=== PATIENT | male | born 1995 | race Caucasian/White ===

== ENCOUNTER 2020-04-04 18:34 | Emergency (ER) | payer OTHER, SELFPAY ==
[2020-04-04] VITALS (10 sets, daily range): BP systolic 128–141; BP diastolic 68–72; PULSE 75–93; RESP 11–20; TEMP 36.7–36.8; O2SAT 96–99
--- NOTE | 2020-04-04 | DI.CT_ITS ---
EXAM: CT CHEST/ABD/PEL W TECHNIQUE: CT examination of the chest, abdomen, and pelvis was performed with bolus infusion of 100 cc of Omnipaque 350. COMPARISON: CT CT THORACIC LUMBAR SPINE REC from 04/04/2020 FINDINGS: There is no evidence of a thoracic vascular injury. The lungs are clear. No pneumothorax or pleural effusion. No mediastinal hematoma. No adenopathy in the chest. Tracheobronchial tree appears intact. The liver, spleen, and pancreas appear normal. Gallbladder and bile ducts are normal. Adrenals and kidneys are unremarkable. No evidence of urinary tract injury or obstruction. No abdominal or pelvic vascular injury seen. No abdominal or pelvic adenopathy. No significant abdomi nal wall hernia or hematoma. No evidence of bowel injury. No fracture identified in the region surveyed. Additional reconstructions of thoracic spine and lumbar spine were performed utilizing raw data. The re is no evidence of acute thoracic spine or lumbar spine injury. IMPRESSION: No evidence of acute injury of the chest, abdomen, or pelvis. No evidence of acute lumbar or thoracic spine injury. RADIATION DOSE DELIVERED: Total DLP Total DLP Total DLP Total DLP Total DLP DATA REPOSITORY: All CT scans at this facility are submitted to the National Radiology Data Registry (NRDR) Dose Index Registry (DIR) with the [employer] ([employer]). RADIATION OPTIMIZATION: All CT scans at this facility use at least one of these dose optimization te chniques: automated exposure control; mA and/or kV adjustment per patient size (includes targeted exa ms where dose is matched to clinical indication); or iterative reconstruction.
--- NOTE | 2020-04-04 18:30 | DI.CT_ITS ---
EXAM: CT HEAD NECK WO COMPARISON: No exams were available for comparison FINDINGS: CT examination of the cervical spine was performed without contrast administration. There is no evide nce of acute cervical spine fracture or dislocation. Tracheolaryngeal structures appear intact. No ce rvical mass or adenopathy. Intervertebral disc spaces are well maintained. Noncontrast cranial CT was performed. Ventricular system is normal in appearance. No evidence of acut e intracranial hemorrhage, mass effect, or midline shift. No calvarial fracture. The orbital and temp oral bone structures appear intact. IMPRESSION: No evidence of acute cervical spine injury. No evidence of acute intracranial injury. RADIATION DOSE DELIVERED: 1,412.58mGy.cm Total DLP 1,412.58mGy.cm Total DLP DATA REPOSITORY: All CT scans at this facility are submitted to the National Radiology Data Registry (NRDR) Dose Index Registry (DIR) with the [employer] ([employer]). RADIATION OPTIMIZATION: All CT scans at this facility use at least one of these dose optimization te chniques: automated exposure control; mA and/or kV adjustment per patient size (includes targeted exa ms where dose is matched to clinical indication); or iterative reconstruction.
[2020-04-04] MEDS: Normal Saline 1,000 ML 1000 ML IV (18:55)
[2020-04-04 19:03] LABS: Abs Immature Grans 0.05 10^3/uL (0.0-0.06); Absolute Basophil Count 0.04 10^3/uL (0.0-0.2); Absolute Eosinophil Count 0.04 10^3/uL (0.0-0.7); Absolute Lymphocyte Count 2.44 10^3/uL (1.2-3.4); Absolute Monocyte Count 0.44 10^3/uL (0.1-0.8); Absolute Neutrophil Count 4.62 10^3/uL (1.2-6.7); Basophils % 0.5; Eosinophils % 0.5; HGB 16.4 g/dL (13.5-17.5); Immature Grans % 0.7; MCH 30.9 pg (27.0-33.0); MCHC 35.7 % (32.0-36.0); MCV 86.8 fL (80-95); Monocytes % 5.8; Neutrophils % 60.5; Nucleated RBC 0 %; Platelet Count 293 10^3/uL (130-400); RDW 11.7 % (11.8-14.1); RDW-SD 36.9 fL; WBC 7.63 10^3/uL (4.4-10.8)
[2020-04-04 19:16] LABS: PTT Activated 24.3 sec (21.0-31.4); Prothrombin Time 12.5 sec (9.3-11.0)
[2020-04-04 19:17] LABS: INR 1.2 (0.9-1.1)
[2020-04-04 19:21] LABS: ALT 72 U/L (16-63); AST 42 U/L (15-37); Alkaline Phosphatase 93 U/L (46-116); Anion Gap 9.9 mmol/L (3-11); BUN 8 mg/dL (7-18); Bilirubin, Total 1.1 mg/dL (0.2-1.0); CO2 28.1 mmol/L (21.0-32.0); CREATININE 1.13 mg/dL (0.70-1.30); Calcium 9.2 mg/dL (8.5-10.1); Chloride 104 mmol/L (98-107); ETHANOL BLOOD 192.8 mg/dL (<3); Glucose 96 mg/dL (74-106); Lipase 120 U/L (73-393); Magnesium 2.1 mg/dL (1.8-2.4); Potassium 3.4 mmol/L (3.5-5.1); Sodium 142 mmol/L (136-145); Total Protein 9.1 g/dL (6.4-8.2); Troponin I < 0.05 ng/mL (<0.06)
[2020-04-04 19:24] LABS: Bilirubin Negative (Negative); Blood Negative (Negative); Clarity Clear (Clear); Glucose Negative (Negative); Ketones Negative (Negative); Leukocyte Esterase Negative (Negative); Nitrite Negative (Negative); Urobilinogen 0.2 EU/dL (Up TO 0.2); pH 6.5 (5-8)
[2020-04-04 19:35] LABS: *AMPHETAMINES SCREEN URINE Negative (Negative); *BARBITURATES SCREEN URINE Negative (Negative); *BENZODIAZEPINES SCREEN URINE Negative (Negative); Cannabinoids THC Negative (Negative); Cocaine Screen,Urine Negative (Negative); METHADONE URINE SCREEN Negative (Negative); OPIATES URINE SCREEN Negative (Negative)
[2020-04-04 19:36] LABS: Tricyclic Antidepressants Negative (Negative)
--- NOTE | 2020-04-04 20:07 | DI.VRAD_ITS ---
PROCEDURE INFORMATION: Exam: CT Head Without Contrast Exam date and time: 04/04/2020 7:31 PM Age: 25 years old Clinical indication: Injury or trauma; Blunt trauma (contusions or hematomas); Consciousness not specified; Patient HX: Trauma, fall 20 feet TECHNIQUE: Imaging protocol: Computed tomography of the head without contrast. COMPARISON: No relevant prior studies available. FINDINGS: No evidence of hemorrhage. No mass effect. No acute intracranial abnormality. IMPRESSION: No evidence of acute intracranial process. PROCEDURE INFORMATION: Exam: CT Cervical Spine Without Contrast Exam date and time: 04/04/2020 7:31 PM Age: 25 years old Clinical indication: Injury or trauma; Blunt trauma (contusions or hematomas); Consciousness not specified; Patient HX: Trauma, fall 20 feet TECHNIQUE: Imaging protocol: Computed tomography images of the cervical spine without contrast. COMPARISON: No relevant prior studies available. FINDINGS: The bony structures are in anatomic alignment. No fracture is present. No radiopaque foreign body is identified. Parasinous soft tissues unremarkable. Lung apices within normal limits. IMPRESSION: No evidence of acute bony abnormality. Dictated and Authenticated by: Abram Kyle MD. Ordering:NOY Ravi MD
--- NOTE | 2020-04-04 20:25 | DI.VRAD_ITS ---
PROCEDURE INFORMATION: Exam: CT Chest With Contrast Exam date and time: 04/04/2020 7:37 PM Age: 25 years old Clinical indication: Injury or trauma; Patient HX: Trauma, fall 20 feet TECHNIQUE: Imaging protocol: Computed tomography of the chest with intravenous contrast. COMPARISON: No relevant prior studies available. FINDINGS: Lungs: Unremarkable. No consolidation. No masses. Pleural space: Unremarkable. No pneumothorax. No pleural effusion. Heart: Unremarkable. No cardiomegaly. No pericardial effusion. Aorta: Unremarkable. No aortic aneurysm. Lymph nodes: Unremarkable. No enlarged lymph nodes. Bones/joints: Unremarkable. No acute fracture. Soft tissues: Unremarkable. IMPRESSION: No acute findings. PROCEDURE INFORMATION: Exam: CT Abdomen And Pelvis With Contrast Exam date and time: 04/04/2020 7:37 PM Age: 25 years old Clinical indication: Injury or trauma; Patient HX: Trauma, fall 20 feet TECHNIQUE: Imaging protocol: Computed tomography of the abdomen and pelvis with intravenous contrast. COMPARISON: No relevant prior studies available. FINDINGS: Liver: Normal. No mass. Gallbladder and bile ducts: Normal. No calcified stones. No ductal dilation. Pancreas: Normal. No ductal dilation. Spleen: Normal. No splenomegaly. Adrenals: Normal. No mass. Kidneys and ureters: No hydronephrosis. Bilateral extrarenal pelves are noted with mild left pelvicaliectasis. Stomach and bowel: Unremarkable. No obstruction. No mucosal thickening. Appendix: No evidence of appendicitis. Intraperitoneal space: Unremarkable. No free air. No significant fluid collection. Vasculature: Unremarkable. No abdominal aortic aneurysm. Lymph nodes: Unremarkable. No enlarged lymph nodes. Urinary bladder: Unremarkable as visualized. Reproductive: Unremarkable as visualized. Bones/joints: Unremarkable. No acute fracture. Soft tissues: Unremarkable. IMPRESSION: 1. No definite acute injury in the abdomen and pelvis. 2. Mild left pelvicaliectasis, which is nonspecific but may be within normal limits for this patient. Dictated and Authenticated by: Radha Mccall MD. Ordering:NOY Ravi MD
--- NOTE | 2020-04-04 20:32 | DI.VRAD_ITS ---
PROCEDURE INFORMATION: Exam: CT Thoracic Spine Without Contrast Exam date and time: 04/04/2020 7:37 PM Age: 25 years old Clinical indication: Screening exam; Trauma, 20 foot fall; Patient HX: Trauma, fall 20 feet TECHNIQUE: Imaging protocol: Computed tomography images of the thoracic spine without contrast. COMPARISON: No relevant prior studies available. FINDINGS: Vertebrae: No acute fracture. Normal alignment. Discs/Spinal canal/Neural foramina: No significant disc protrusion. No severe spinal canal stenosis. No significant neural foraminal narrowing. Soft tissues: Unremarkable. IMPRESSION: Unremarkable CT thoracic Spine. PROCEDURE INFORMATION: Exam: CT Lumbar Spine Without Contrast Exam date and time: 04/04/2020 7:37 PM Age: 25 years old Clinical indication: Screening exam; Trauma, 20 foot fall; Patient HX: Trauma, fall 20 feet TECHNIQUE: Imaging protocol: Computed tomography images of the lumbar spine without contrast. COMPARISON: No relevant prior studies available. FINDINGS: Vertebrae: No acute fracture. Normal alignment. Discs/Spinal canal/Neural foramina: No significant spinal canal stenosis. There is mild bilateral narrowing at L4-L5 secondary to a mild broad-based disc bulge. Soft tissues: Unremarkable. IMPRESSION: 1. No acute fracture. 2. Mild bilateral neural foraminal narrowing at L4-L5 secondary to mild broad-based disc bulge. Dictated and Authenticated by: Radha Mccall MD. Ordering:NOY Ravi MD
--- NOTE | 2020-04-04 21:14 | ED.GENADUL_ITS ---
Discharge Plan Disposition Patient Disposition: HOME Condition: Stable Discharge Details Clinical Impression: Trauma ED Provider: Trav Millard Discharge Instructions Additional Instructions: At this time you remain asymptomatic. Laboratory values and CT imaging do not reveal any obvious emergent process. Please watch for new or worsening symptoms and return to the ER for any concerns. Please follow-up with your primary care provider when you return home to [place]. Medical Decision Making This is a 25-year-old gentleman who admits to approximately 5 alcoholic drinks this evening, presents to the ER via EMS after falling approximately 20 feet off of a balcony. He initially reported anterior chest wall pain upon arrival has no complaints. He presents in a c-collar. Will obtain to IV access, give 1 L IV saline, obtain CT imaging of head, neck, chest, abdomen, pelvis, spinal recons, and laboratory values. Upon evaluation patient appears well, nontoxic, no obvious deformity. He is awake, alert, and has no complaints at this time. Laboratory values reveal a white blood cell count of 7.63 hemoglobin 16.4 hematocrit 46.0 platelet count 293. INR 1.2. Sodium 142 potassium 3.2 crea tinine 1.13 with a GFR greater than 60. Total bili 1.1 AST 42 ALT 72, alk phosphatase 93. Troponin less than 0.05. Urinalysis negative, tox screen negative, alcohol level 192. Blood type O+. CT imaging of head read by virtual radiology as no evidence of acute intracranial process. C-spine, no evidence of acute bony abnormality chest no acute findings. Abdomen and pelvis no definitive acute injury the abdomen and pelvis. Mild left pelvicaliectasis, which is nonspecific but may be within normal limits for this patient. CT thoracic spine without contrast unremarkable CT thoracic spine. No acute fracture of the lumbar spine. Mild bilateral neural foraminal narrowing at L4-L5 secondary to mild broad-based disc bulge. C-collar removed Discussed case with Dr. Rosales. Patient will be observed in the ER until 11 PM at which time his alcohol level will have gone below 100. Will reevaluate the patient and if he remains asymptomatic and neurologically intact patient will be cleared and discharged. I was able to speak with Peter, patient's friend to make him aware of what was going on. Patient was observed in the ER until 11 PM. At that time he was reassessed. He remains asymptomatic. He remains neurologically intact. Neck nontender. He is awake, alert, ambulates steadily, and able to protect his airway without difficulty. He appears clinically sober. Patient has no additional questions or concerns and is comfortable discharge at this time. HPI General Mode of arrival: EMS . Date/Time Provider Initiated Documentation: 04/04/20 18:44 . Limitations to Documentation: no limitations . Information obtained by: patient and EMS . HPI Narrative: This is a 25-year-old gentleman, no significant past medical history, presenting to the ER for evaluat ion via EMS. He reports that he drove up here today from [facility], had approximately 5 alcoholic drinks, and then fell from a deck or balcony approximately 20 feet onto a grassy slope. He initially read the EMS mild anterior chest wall but upon arrival reports that pain has resolved completely. He denies striking his head, LOC, headache, visual changes, neck pain, back pain, shortness of breath abdominal pain, nausea, vomiting, bowel or bladder incontinence, numbness, tingling, weakness. He reports that his tetanus status is up-to-date. He reports that he came up here for the day because his girlfriend recently broke up with him and he wanted to get away and has some phone. He denies any depression, suicidal or homicidal ideations. He reports that he is here with friends and has somewhere safe to go if discharge. He denies drugs or smoking cigarettes Related Data Allergies Allergy/AdvReac Type Severity Reaction Status Date / Time amoxicillin Allergy Unverified 04/04/20 18:46 gluten AdvReac Unverified 04/04/20 18:47 General Stated Complaint: Trauma LUCILLE: 2 Review of Systems Constitutional Constitutional: Denies fever(s), Denies headache(s) and Denies weakness Eyes Eyes: Denies change in vision ENT Ears, Nose, Mouth, and Throat: Denies facial pain and Denies headache(s) Cardiovascular Cardiovascular: Denies chest pain and Denies dyspnea Respiratory Respiratory: Denies cough and Denies dyspnea Gastrointestinal Gastrointestinal: Denies abdominal pain, Denies fecal incontinence, Denies nausea and Denies vomiting Genitourinary Genitourinary: Denies hematuria and Denies urinary incontinence Musculoskeletal Musculoskeletal: Denies back pain, Denies numbness and Denies tingling Integumentary/Breasts Skin/Breast: Denies rash Neurologic Neurologic: Denies headache(s), Denies numbness, Denies tingling and Denies weakness Psychiatric Psychiatric: Denies homicidal ideation and Denies suicidal ideation Exam Const General: cooperative, healthy appearing, comfortable and no acute distress Orientation: alert, awake and oriented x3 [facility] Head: normal to inspection, no palpable skull fracture, normocephalic and atraumatic Ears: hearing grossly normal bilaterally, external ears normal, TM's normal bilaterally and EAC's normal General nose exam: external nose normal Face and sinus: normal facial exam Mouth: oral mucosae normal and moist mucous membranes Teeth and gingiva: dentition normal Throat: posterior oropharynx normal Eyes General: appearance normal, both eyes and all related structures Alignment and Position: alignment normal Periorbital: periorbital findings normal Eyelids: eyelids normal Conjunctivae: conjunctivae normal Sclera: sclerae normal Cornea: corneas normal Pupils: PERRL EOM: EOM intact bilaterally Direct ophthalmoscopy: normal light reflex Neck Neck: normal visual inspection, trachea midline, supple, nontender and other (C- collar in place) Chest Chest: normal inspection of the chest and normal palpation of entire chest wall Resp Effort & Inspection: normal respiratory effort and able to speak in complete sentences Auscultation: clear to auscultation bilaterally Cardio Rate: regular rate Rhythm: regular rhythm GI Inspection: normal to inspection Palpation: soft, not firm, no guarding and nontender Auscultation: normal bowel sounds Back/Spine/Pelvis Back: no CVA tenderness, No back tenderness and other (Logrolled to the patient's left while maintaining C-spine precautions) Skin General skin exam: no rashes or lesions noted Neuro General: patient alert, patient awake, patient oriented x3, moves all extremities and no focal motor deficits Cranial Nerves: CN's II-XI intact bilaterally Cognition: normal cognition Speech: speech normal Motor: muscle tone normal throughout and strength 5/5 throughout Sensory Exam: no sensory deficits noted Extrem Right upper extremity: normal to inspection, full ROM and normal capillary refill Left upper extremity: full ROM, normal capillary refill and elbow/forearm (Left forearm abrasion) Right lower extremity: normal to inspection, full ROM and normal capillary refill Left lower extremity: normal to inspection, full ROM and normal capillary refill Psych Appearance: grossly normal Mental Status: mental status grossly normal Course Vital Signs Vital signs: Vital Signs Temperature 36.7 C 10/03/20 18:39 Pulse 84 04/04/20 18:39 Respiratory Rate 13 04/04/20 18:39 Blood Pressure 141/69 H 04/04/20 18:39 Pulse Oximetry 99 04/04/20 18:39 Temperature 36.7 C 04/04/20 20:31 Temperature Source Temporal Artery Scan 04/04/20 20:31 Pulse 88 04/04/20 20:31 Respiratory Rate 16 04/04/20 20:31 Respiratory Effort 04/04/20 18:56 Respiratory Depth Normal 04/04/20 18:56 Respiratory Pattern Normal 04/04/20 18:56 Blood Pressure 140/70 04/04/20 20:31 Blood Pressure Position Supine 04/04/20 18:39 Pulse Oximetry 99 04/04/20 20:31 Oxygen Delivery Method Room Air 04/04/20 20:31 Oxygen Flow Rate 0 04/04/20 20:31 Pain Level 0 04/04/20 20:31 Comment 04/04/20 20:31 Lab/Test Results Lab/Test Results: Laboratory Tests Range/Units 04/04/20 04/04/20 04/04/20 18:20 18:20 18:50 WBC (4.4-10.8) 10^3/uL RBC (4.36-5.78) 10^6/uL Hgb (13.5-17.5) g/dL Hct (40.0-50.0) % MCV (80-95) fL MCH (27.0-33.0) pg MCHC (32.0-36.0) % RDW (11.8-14.1) % Plt Count (130-400) 10^3/uL MPV (8.0-11.0) fL Immature Gran % Neutrophils % Lymphocytes % Monocytes % Eosinophils % Basophils % Nucleated RBC % % Absolute Neutrophils (1.2-6.7) 10^3/uL Absolute Lymphocytes (1.2-3.4) 10^3/uL Absolute Monocytes (0.1-0.8) 10^3/uL Absolute Eosinophils (0.0-0.7) 10^3/uL Absolute Basophils (0.0-0.2) 10^3/uL PT (9.3-11.0) sec INR (0.9-1.1) APTT (21.0-31.4) sec Sodium (136-145) mmol/L 142 Potassium (3.5-5.1) mmol/L 3.4 L Chloride (98-107) mmol/L 104 Carbon Dioxide (21.0-32.0) mmol/L 28.1 Anion Gap (3-11) mmol/L 9.9 BUN (7-18) mg/dL 8 Creatinine (0.70-1.30) mg/dL 1.13 Estimated GFR/1.73 m2 (mL/min/1.73m2) >= 60.00 Glucose (74-106) mg/dL 96 Calcium (8.5-10.1) mg/dL 9.2 Magnesium (1.8-2.4) mg/dL 2.1 Total Bilirubin (0.2-1.0) mg/dL 1.1 H AST (15-37) U/L 42 H ALT (16-63) U/L 72 H Alkaline Phosphatase (46-116) U/L 93 Troponin I (<0.06) ng/mL < 0.05 Total Protein (6.4-8.2) g/dL 9.1 H Albumin (3.4-5.0) g/dL 5.0 Lipase (73-393) U/L 120 Urine Color (Yellow) Yellow Urine Clarity (Clear) Clear Urine pH (5-8) 6.5 Ur Specific [place] (1.005-1.025) 1.010 Urine Protein (Negative) mg/dL Negative Urine Ketones (Negative) mg/dL Negative Urine Blood (Negative) Negative Urine Nitrite (Negative) Negative Urine Bilirubin (Negative) Negative Urine Urobilinogen (Up TO 0.2) EU/dL 0.2 Ur Leukocyte Esterase (Negative) Negative Urine Glucose (Negative) mg/dL Negative Urine Opiates Screen (Negative) Negative Urine Methadone Screen (Negative) Negative Ur Barbiturates Screen (Negative) Negative Ur Tricyclics Screen (Negative) Negative Ur Amphetamines Screen (Negative) Negative U Benzodiazepines Scrn (Negative) Negative Urine Cocaine Screen (Negative) Negative Ur THC Screen (Negative) Negative Ethyl Alcohol (<3) mg/dL 192.8 Patient ABO/Rh Antibody Screen Range/Units 04/04/20 04/04/20 04/04/20 18:50 18:50 18:50 WBC (4.4-10.8) 10^3/uL 7.63 RBC (4.36-5.78) 10^6/uL 5.30 Hgb (13.5-17.5) g/dL 16.4 Hct (40.0-50.0) % 46.0 MCV (80-95) fL 86.8 MCH (27.0-33.0) pg 30.9 MCHC (32.0-36.0) % 35.7 RDW (11.8-14.1) % 11.7 L Plt Count (130-400) 10^3/uL 293 MPV (8.0-11.0) fL 10.0 Immature Gran % 0.7 Neutrophils % 60.5 Lymphocytes % 32.0 Monocytes % 5.8 Eosinophils % 0.5 Basophils % 0.5 Nucleated RBC % % 0 Absolute Neutrophils (1.2-6.7) 10^3/uL 4.62 Absolute Lymphocytes (1.2-3.4) 10^3/uL 2.44 Absolute Monocytes (0.1-0.8) 10^3/uL 0.44 Absolute Eosinophils (0.0-0.7) 10^3/uL 0.04 Absolute Basophils (0.0-0.2) 10^3/uL 0.04 PT (9.3-11.0) sec 12.5 H INR (0.9-1.1) 1.2 H APTT (21.0-31.4) sec 24.3 Sodium (136-145) mmol/L Potassium (3.5-5.1) mmol/L Chloride (98-107) mmol/L Carbon Dioxide (21.0-32.0) mmol/L Anion Gap (3-11) mmol/L BUN (7-18) mg/dL Creatinine (0.70-1.30) mg/dL Estimated GFR/1.73 m2 (mL/min/1.73m2) Glucose (74-106) mg/dL Calcium (8.5-10.1) mg/dL Magnesium (1.8-2.4) mg/dL Total Bilirubin (0.2-1.0) mg/dL AST (15-37) U/L ALT (16-63) U/L Alkaline Phosphatase (46-116) U/L Troponin I (<0.06) ng/mL Total Protein (6.4-8.2) g/dL Albumin (3.4-5.0) g/dL Lipase (73-393) U/L Urine Color (Yellow) Urine Clarity (Clear) Urine pH (5-8) Ur Specific [place] (1.005-1.025) Urine Protein (Negative) mg/dL Urine Ketones (Negative) mg/dL Urine Blood (Negative) Urine Nitrite (Negative) Urine Bilirubin (Negative) Urine Urobilinogen (Up TO 0.2) EU/dL Ur Leukocyte Esterase (Negative) Urine Glucose (Negative) mg/dL Urine Opiates Screen (Negative) Urine Methadone Screen (Negative) Ur Barbiturates Screen (Negative) Ur Tricyclics Screen (Negative) Ur Amphetamines Screen (Negative) U Benzodiazepines Scrn (Negative) Urine Cocaine Screen (Negative) Ur THC Screen (Negative) Ethyl Alcohol (<3) mg/dL Patient ABO/Rh O Positive Antibody Screen Negative
== END 2020-04-04 23:30 | disposition home or self-care (01) ==
LOC: ER 23:32
PROVIDERS: Emergency Provider Physician Assistant
DX: R07.81 Pleurodynia (principal); W13.0XXA Fall from, out of or through balcony, initial encounter; F10.120 Alcohol abuse with intoxication, uncomplicated; Y90.6 Blood alcohol level of 120-199 mg/100 ml
CPT/HCPCS: 36415; 74177; 80053; 80307; 83690; 86850; 86900; 86901; 96360; 96361; 99285; 70450; 70490; 71260; 80320; 81003; 83735; 84484; 85025; 85610; 85730